=== PATIENT | female | born 1950 | race Caucasian/White ===

== ENCOUNTER 2021-03-14 10:21 | Outpatient (RCR) | payer BC, MEDICARE, OTHER, SELFPAY ==
--- NOTE | 2021-03-15 07:34 | PTOPEVAL ---
Thank you for referring Elvis Bermudez to [facility].? The patient is scheduled to be seen for therapy? ____x/week for ___ weeks. Please review, sign, date and return this plan of care LUISA. I agree with and certify that the following plan of care is medically necessary. Referring Physician Date Admitting Provider: Attending Provider: Jair Simmons MD Referring Provider: *PT Outpatient Evaluation Start: 03/14/21 10:04 Freq: Status: Active Protocol: Document 03/14/21 10:15 [facility] (Rec: 03/14/21 11:52 [facility] [email or web address]) Therapy Assessment Status Assessment Status Assessment Status Evaluation Evaluation Information Problem Diagnosis L shoulder OA, R hip bursitis Onset 03/11/21 Additional Evaluation Detail quick dash = 31% functionally declined LEFS = 11% declined Subjective Information patient reports he is having Query Text:As Reported By Patient/ bursitis pain in the R hip, Family and L shoulder arthritic pain. he reports he has difficulty sleeping on his L side, and lifting anything with the L UE . he reports he has increased pain with the L shoulder compared to the R hip. he reports he did recently have an injection to the R hip. he reports the hip is feeling better. he reports he is losing sleep at night due to being unable to find a comfortable position. Prior Level of Function Comments Additional Prior Level of Function patient reports he has been Comments having increased pain in the L shoulder for a little over a year, and increased pain in the R hip for about 1-2 months . he reports a loss of quality of life due to his shoulder/ hip pain and sleeping loss. Pain Assessment Timing of Pain Assessment Timing of Pain Assessment Assessment Pain Scale Pain Scale Used Numeric (1 - 10) Self Report Pain Assessment Right Hip(s) Reported Pain Level 3 Greatest Pain Intensity 7 Additional Pain Comments better since injection Left Shoulder(s) Reported Pain Level 5 Greatest Pain Intensity 8 Pain Score Pain Score 5,3: Self Report Interventions Used Interventions Used By Clini
--- NOTE | 2021-03-30 16:08 | PTOPEVAL ---
Thank you for referring Elvis Bermudez to [facility].? The patient is scheduled to be seen for therapy? __2__x/week for 4 visits. Please review, sign, date and return this plan of care LUISA. I agree with and certify that the following plan of care is medically necessary. Referring Physician Date Admitting Provider: Attending Provider: Jair Simmons MD Referring Provider: *PT Outpatient Evaluation Start: 03/14/21 10:04 Freq: Status: Active Protocol: Document 03/30/21 15:00 [facility] (Rec: 03/30/21 16:08 [facility] [email or web address]) Therapy Assessment Status Assessment Status Assessment Status Progress Evaluation Information Problem Diagnosis left shoulder OA, R hip bursitis Subjective Information Pt. reports he has been doing Query Text:As Reported By Patient/ better since his injections. Family He states that he still notes weakness in the left arm compared to the right. He reports that his hip has not been a problem during the day for a few days. He still gets some pain at the right hip at night, but is sleeping better . He reports that he would like to continue to improve his shoulder strength Pain Assessment Timing of Pain Assessment Timing of Pain Assessment Pre-Treatment Pain Scale Pain Scale Used Numeric (1 - 10) Self Report Pain Assessment Right Hip(s) Reported Pain Level 0 Left Shoulder(s) Reported Pain Level 1 Pain Score Pain Score 0,1: Self Report Interventions Used Interventions Used By Clinicians Electrical Stimulation, Exercise,Heat Upper Extremity Range of Motion General Upper Extremity Range of Motion Gross Upper Extremity Range of Motion -left shoulder flexion AROM Comments 145 degrees -left shoulder ER AROM 79 degrees -left shoulder IR AROM 74 degrees Lower Extremity Muscle Strength Testing General Lower Extremity Strength Gross Lower Extremity Strength bilateral hip flexion 5/5 bilateral hip extension 4/5 bilateral hip abduction 4/5 bilateral knee flexion 5/5 bilateral knee extension 5/5 Upper Extremity Muscle Strength Testing General Upper Extremity Strength Gross Upper Extremity Strength Comments left shoulder flexion 4+/5 left shoudl
--- NOTE | 2021-04-12 14:56 | PTOPEVAL ---
Thank you for referring Elvis Bermudez to [facility].? The patient is scheduled to be seen for therapy? ____x/week for ___ weeks. Please review, sign, date and return this plan of care LUISA. I agree with and certify that the following plan of care is medically necessary. Referring Physician Date Admitting Provider: Attending Provider: Jair Simmons MD Referring Provider: *PT Outpatient Evaluation Start: 03/14/21 10:04 Freq: Status: Active Protocol: Document 04/12/21 14:09 [facility] (Rec: 04/12/21 14:55 [facility] [email or web address]) Therapy Assessment Status Assessment Status Assessment Status Discharge Evaluation Information Problem Diagnosis L shoulder OA Subjective Information Patient reports since Query Text:As Reported By Patient/ beginning therapy he does not Family have much shoulder pain. He reports that the only time he has pain is when he rolls over onto his L shoulder while sleeping and it is more of an aching than a sharp pain. Pain Assessment Timing of Pain Assessment Timing of Pain Assessment Assessment Pain Scale Pain Scale Used Numeric (1 - 10) Self Report Pain Assessment Right Hip(s) Reported Pain Level 0 Left Shoulder(s) Reported Pain Level 1 Greatest Pain Intensity 1 Pain Score Pain Score 0,1: Self Report Interventions Used Interventions Used By Clinicians Activity or ADL's,Electrical Stimulation,Exercise,Heat Upper Extremity Range of Motion General Upper Extremity Range of Motion Gross Upper Extremity Range of Motion L shoulder flexion AROM: 161 Comments L shoulder ER AROM: 79 L shoulder IR AROM: 76 Lower Extremity Muscle Strength Testing General Lower Extremity Strength Gross Lower Extremity Strength B hip flexion: 5/5 B hip extension: 5/5 B knee flexion: 5/5 B knee extension: 5/5 Upper Extremity Muscle Strength Testing General Upper Extremity Strength Gross Upper Extremity Strength Comments L shoulder flexion: 5/5 L shoulder ABD:4+/5 L shoulder ER: 4+/5 L shoulder IR: 5/5 General Exercise General Exercises Exercise Description - resisted left shoulder ER Query Text:Record Sets, Reps, and IR x 25 each blue Resistance, and Position - resisted bilateral shoulder rows x 30 blue - resisted bilateral shoulder extension with scap depression x 3
== END 2021-04-12 15:05 | disposition home or self-care (01) ==
LOC: CHSPT 10:21
PROVIDERS: PCP Internal Medicine Infectious Disease; Visit Provider Internal Medicine Infectious Disease
DX: M71.551 Other bursitis, not elsewhere classified, right hip (principal); M19.012 Primary osteoarthritis, left shoulder
CPT/HCPCS: 97014; 97110; 97140; 97161; G0283